=== PATIENT | female | born 1935 | race African-American/Black ===

== ENCOUNTER 2021-03-10 00:36 | Inpatient (IN) | payer BC ==
[~2021-03-10] VITALS: Ht 167.6 cm; Wt 48.1 kg
--- NOTE | 2021-03-10 00:42 | NUR ---
pt bib RA 88 with c/o mechanical fall. C/o left hip pain. A/O x4, able to move all extremities but with discomfort on left extremity. No SOB or labored breathing, afebrile. Son at bedside.No visible edema on extremities. No c/o GI/.
--- NOTE | 2021-03-10 00:46 | NUR ---
Dr. Yip at bedside, MSE in progress.
[2021-03-10] MEDS ORDERED: MORPHINE SULFATE 2 MG/1 ML DISP.SYRIN IM ONE (01:00)
--- NOTE | 2021-03-10 01:21 | NUR ---
Pt taken down for CT.
[2021-03-10 01:35] LABS: BASOPHILS % (AUTO) 0.3 % (0.0-2.0); EOSINOPHILS % (AUTO) 0.1 % (0.0-7.0); HEMATOCRIT 28.8 % (31.2-41.9); LYMPHOCYTES # (AUTO) 0.5 K/uL (20.0-40.0); LYMPHOCYTES % (AUTO) 4.7 % (20.5-51.5); MEAN CORPUSCULAR HEMOGLOBIN 29.5 uug (24.7-32.8); MEAN CORPUSCULAR HGB CONC 35 g/dL (32.3-35.6); MEAN CORPUSCULAR VOLUME 84.6 fL (75.5-95.3); MONOCYTES # (AUTO) 0.5 K/uL (2.0-10.0); MONOCYTES % (AUTO) 4.9 % (0.0-11.0); NEUTROPHILS # (AUTO) 9.2 K/uL (1.8-8.9); PLATELET COUNT (AUTO) 130 K/uL (179-408); RED BLOOD CELL COUNT(AUTO) 3.41 MIL/uL (3.63-4.92); WHITE BLOOD COUNT (AUTO) 10.3 K/uL (3.8-11.8)
[2021-03-10 01:37] LABS: CREATININE 0.8 mg/dL (0.6-1.3); POTASSIUM 3.4 mmol/L (3.5-5.1)
[2021-03-10 01:42] LABS: BILIRUBIN,TOTAL 0.2 mg/dL (0.2-1.0); TOTAL PROTEIN, SERUM 6.7 g/dL (6.4-8.2)
--- NOTE | 2021-03-10 01:57 | NUR ---
Pt brought back from CT in stable condition.
[2021-03-10] MEDS ORDERED: HYDR50TA4 PO (03:21)
[2021-03-10] MEDS ORDERED: OXYB-58 PO (03:21)
[2021-03-10] MEDS ORDERED: TERB250T52 PO (03:21)
[2021-03-10] MEDS ORDERED: SIMV10TA98 PO (03:21)
[2021-03-10] MEDS ORDERED: ENOXAPARIN SODIUM 40 MG/0.4 ML DISP.SYRIN SQ SCH ×2 (03:30→09:00)
[2021-03-10] MEDS ORDERED: ONDANSETRON 4 MG/2 ML VIAL IV PRN (03:30)
[2021-03-10] MEDS ORDERED: LORAZEPAM 2 MG/1 ML VIAL IV PRN (03:30)
[2021-03-10] MEDS ORDERED: Z GUARD REMEDY PASTE 57 GM TUBE TOP PRN (03:30)
[2021-03-10] MEDS ORDERED: MAGNESIUM HYDROXIDE 30 ML LIQUID UDC PO PRN (03:30)
[2021-03-10] MEDS ORDERED: MORPHINE SULFATE 2 MG/1 ML DISP.SYRIN IV PRN (03:30)
--- NOTE | 2021-03-10 03:38 | NUR ---
Spoke with Radha Snell, housekeeping cleaner from [facility]. Per Radha they have no available beds at this time and to try again at 0730 with day shift[address] [facility]-
[2021-03-10 04:20] LABS: *BILIRUBIN,URIN NEGATIVE (NEGATIVE); *BLOOD, URINE 2+ (NEGATIVE); *CLARITY,URINE SLIGHTLY CLOUDY (CLEAR); *COLOR,URINE YELLOW (YELLOW); *KETONES,URINE NEGATIVE (NEGATIVE); *UROBILINOGEN,URINE 0.2 E.U./dl (NORMAL); LEUKOCYTE ESTERASE ,URINE TRACE (NEGATIVE); NITRITE, URINE NEGATIVE (NEGATIVE); PH,URINE 6.5 (5.0-8.0); UGLUCOSE NEGATIVE (NEGATIVE)
--- NOTE | 2021-03-10 04:20 | NUR ---
Gave report to Med Surg nurse Kym.
[2021-03-10 04:34] LABS: BACTERIA,URINE MODERATE /HPF (NONE SEEN); MUCUS,URINE FEW /LPF (0-FEW); RBC,URINE 80-100 /HPF (0-3); SQUAMOUS EPITHELIAL CELL,UR MODERATE /HPF (NONE SEEN); URINE AMORPHOUS URATE MODERATE /HPF; WBC,URINE 50-80 /HPF (0-3)
--- NOTE | 2021-03-10 04:41 | NUR ---
ER MD Dr. Yip with verbal order to hold Lovenox for possible procedure.
--- NOTE | 2021-03-10 05:21 | NUR ---
Patient is resting comfortably in bed with eyes closed. Bed in lowest position.
[2021-03-10] MEDS: IV NS 1000 ML 1,000 ML IV PRN ×2 (06:00→11:20)
--- NOTE | 2021-03-10 07:01 | NUR ---
Gave report to bertrand Michelle RN.
--- NOTE | 2021-03-10 07:31 | NUR ---
[facility] center was called to check bed availability. Waiting for call back with bed information from [facility] .
--- NOTE | 2021-03-10 08:02 | NUR ---
Rashaad from [facility] called back with information - they cannot accept pt's transfer , because [facility] does not have available beds.
[2021-03-10] MEDS ORDERED: LORAZEPAM 2 MG/1 ML VIAL ONE (08:20)
[2021-03-10] MEDS ORDERED: PANTOPRAZOLE SODIUM 40 MG VIAL IV SCH (09:00)
--- NOTE | 2021-03-10 09:45 | NUR ---
REPORT WAS GIVEN TO YESSI M/S. PT WAS TRANSFERD TO M/S ROOM #308.
[2021-03-10 10:07] VITALS: BP 120/63
--- NOTE | 2021-03-10 11:00 | NUR ---
Admitted this 85 year old female from the Emergency Department. Pt in NAD, no SOB. VSS: BP 120/63, HR 72, O2 saturation 96% on RA, temperature 98.2, RR 20. Pt's son at bedside. Pt able to participate in admission process. Pt oriented to unit, floor, and assigned room number. Pt A&Ox4, able to verbalize needs. Pt educated computer consultant light usage, verbalized understanding. Safety measures and fall precautions in place. Call light and belongings within reach.
[2021-03-10] MEDS: POTASSIUM CHLORIDE 50 ML IV SCH ×2 (11:21→13:00)
--- NOTE | 2021-03-10 11:25 | NUR ---
No IV pole or pump available until current time. IV medication and fluid delayed, pharmacy aware.
[2021-03-10] MEDS ORDERED: POTASSIUM CHLORIDE 10 MEQ TAB.PRT.SR PO ONE (13:00)
[2021-03-10] MEDS: ENOXAPARIN SODIUM 40 MG/0.4 ML DISP.SYRIN SQ SCH (13:10)
--- NOTE | 2021-03-10 13:10 | NUR ---
Pt reported irritation in L arm d/t potassium IV. LITZY Lau aware, subsequent potassium dose changed to PO route. Pt requested PRN Tylenol for mild pain, pt took one pill and refused the other. Per pt "I take half doses". 2nd pill returned per policy.
[2021-03-10] MEDS ORDERED: POTASSIUM CHLORIDE 10 MEQ, LIDOCAINE-MPF 1% 1 ML in IV DEXTROSE 5% 100 ML IV SCH (13:15)
[2021-03-10] MEDS: ACETAMINOPHEN 325 MG TABLET PO PRN ×2 (13:16→20:19)
[2021-03-10 15:29] VITALS: BP 130/65
--- NOTE | 2021-03-10 18:54 | NUR ---
Pt in no acute distress, awake and alert. Perez Kwong at bedside, stated he would like to speak with Dr. Lau, Dr. Lau aware. Nursing care discussed with pt and family. Pt kept clean and dry, repositioned gently. Will endorse to sdv pilot/navigator/dds operator nurse for continuity of care.
[2021-03-10 20:06] VITALS: BP 106/50
[2021-03-11] MEDS: MORPHINE SULFATE 2 MG/1 ML DISP.SYRIN IV PRN ×3 (00:20→20:16)
[2021-03-11] MEDS: IV NS 1000 ML 1,000 ML IV PRN (01:45)
[2021-03-11 04:06] VITALS: BP 114/54
--- NOTE | 2021-03-11 06:23 | NUR ---
TEXTED DR. STUBBS FOR MRI APPROVAL.
[2021-03-11] MEDS: PANTOPRAZOLE SODIUM 40 MG TABLET.DR PO SCH (06:29)
[2021-03-11 06:35] LABS: BASOPHILS % (AUTO) 0.4 % (0.0-2.0); EOSINOPHILS % (AUTO) 1.2 % (0.0-7.0); HEMATOCRIT 24.6 % (31.2-41.9); HEMOGLOBIN 8.4 g/dL (10.9-14.3); LYMPHOCYTES # (AUTO) 0.8 K/uL (20.0-40.0); LYMPHOCYTES % (AUTO) 20.1 % (20.5-51.5); MEAN CORPUSCULAR HGB CONC 34 g/dL (32.3-35.6); MEAN CORPUSCULAR VOLUME 85.1 fL (75.5-95.3); MONOCYTES # (AUTO) 0.4 K/uL (2.0-10.0); NEUTROPHILS # (AUTO) 2.8 K/uL (1.8-8.9); NEUTROPHILS % (AUTO) 69.3 % (38.5-71.5); PLATELET COUNT (AUTO) 92 K/uL (179-408); RED BLOOD CELL COUNT(AUTO) 2.89 MIL/uL (3.63-4.92)
--- NOTE | 2021-03-11 06:39 | NUR ---
Pt slept intermittently throughout the night. C/o mild pain in left hip, declines pain medication at this time. Morphine given once on shift, tolerated well. Consent needed for MRI, patient wants to speak with her son before making a decision, will endorse to day shift. Otherwise, no distress noted. Safety and comfort provided. No other issues or concerns at this time, will endorse to day shift.
[2021-03-11 07:02] LABS: CREATININE 0.8 mg/dL (0.6-1.3); MAGNESIUM 1.8 mg/dL (1.8-2.4); PHOSPHOROUS 2.6 mg/dL (2.5-4.9); POTASSIUM 3.6 mmol/L (3.5-5.1)
[2021-03-11 07:17] LABS: EOSINOPHILS % (MANUAL) 1 % (0-8); LYMPHOCYTES % (MANUAL) 16 % (20-40); MONOCYTES % (MANUAL) 10 % (2-10); NEUTROPHILS % (MANUAL) 73 % (42-75)
[2021-03-11 08:22] VITALS: BP 114/50
[2021-03-11] MEDS: ENOXAPARIN SODIUM 40 MG/0.4 ML DISP.SYRIN SQ SCH (08:32)
--- NOTE | 2021-03-11 08:33 | NUR ---
Informed Oh Lau DNP that lovenox is due but platelet count is 92, per TOP STITCHER hold dose for now, and continue on the use of DVT pump.
[2021-03-11 11:45] VITALS: BP 129/63
[2021-03-11 14:28] VITALS: BP 137/63
--- NOTE | 2021-03-11 17:00 | NUR ---
Patient remains alert, oriented x3, not in any form of distress, on room air. Patient complained of left hip pain given PRN pain medication as ordered with noted relief. Needs attended to promptly. Call light and frequently used items placed within patient's reach. Son at bedside.
--- NOTE | 2021-03-11 19:00 | NUR ---
PATIENT ALERT X3, BUT FORGETFUL, PATIENT COMPLAIN OF L HIP/PELVIC PAIN, WILL MEDICATED ORDERED, PATIENT URINATING, INCONTINENCE OF BLADDER. PATIENT WAS KEPT CLEAN AND DRY, CALL LIGHT WITHIN REACH, CONT TO MONITOR.
[2021-03-11 20:00] VITALS: BP 142/66
[2021-03-11] MEDS: SIMVASTATIN 10 MG TABLET PO SCH (20:12)
[2021-03-11] MEDS: ACETAMINOPHEN 325 MG TABLET PO PRN (21:09)
[2021-03-12 04:00] VITALS: BP 129/60
[2021-03-12] MEDS: PANTOPRAZOLE SODIUM 40 MG TABLET.DR PO SCH (06:03)
[2021-03-12 06:26] LABS: BASOPHILS % (AUTO) 0.5 % (0.0-2.0); EOSINOPHILS # (AUTO) 0.1 K/uL (0.0-0.7); EOSINOPHILS % (AUTO) 1.6 % (0.0-7.0); HEMATOCRIT 25.6 % (31.2-41.9); HEMOGLOBIN 8.6 g/dL (10.9-14.3); LYMPHOCYTES # (AUTO) 0.9 K/uL (20.0-40.0); LYMPHOCYTES % (AUTO) 20.7 % (20.5-51.5); MEAN CORPUSCULAR HEMOGLOBIN 28.6 uug (24.7-32.8); MEAN CORPUSCULAR HGB CONC 34 g/dL (32.3-35.6); MEAN CORPUSCULAR VOLUME 84.7 fL (75.5-95.3); MONOCYTES # (AUTO) 0.4 K/uL (2.0-10.0); MONOCYTES % (AUTO) 9.9 % (0.0-11.0); NEUTROPHILS # (AUTO) 2.8 K/uL (1.8-8.9); NEUTROPHILS % (AUTO) 67.3 % (38.5-71.5); PLATELET COUNT (AUTO) 93 K/uL (179-408); RED BLOOD CELL COUNT(AUTO) 3.02 MIL/uL (3.63-4.92); WHITE BLOOD COUNT (AUTO) 4.2 K/uL (3.8-11.8)
[2021-03-12] MEDS: MORPHINE SULFATE 2 MG/1 ML DISP.SYRIN IV PRN ×2 (06:39→17:04)
[2021-03-12 06:55] LABS: CREATININE 0.7 mg/dL (0.6-1.3); PHOSPHOROUS 3.1 mg/dL (2.5-4.9); POTASSIUM 3.7 mmol/L (3.5-5.1)
[2021-03-12] MEDS: IV NS 1000 ML 1,000 ML IV PRN (06:56)
--- NOTE | 2021-03-12 06:59 | NUR ---
PATIENT ALERT NO SOB NO CHEST PAIN, PATIENT INCONTINENT OF BLADDER, KEPT CLEAN AND DRY, CONT ON PAIN MANAGEMENT DUE L HIP/PELVIC FX, NO S/S OF DISTRESS.
--- NOTE | 2021-03-12 07:30 | NUR ---
Received patient in bed awake, alert and oriented times 4. No sign of distress noted. No SOB reported. Patient is being prepped for a MRI. Safety precautions are in place. Will continue to monitor.
[2021-03-12] MEDS: ENOXAPARIN SODIUM 40 MG/0.4 ML DISP.SYRIN SQ SCH (09:00)
--- NOTE | 2021-03-12 09:02 | NUR ---
Lovenox help per patient platelet level. Platelets is 93. Will continue to monitor.
[2021-03-12 11:49] VITALS: BP 129/57
[2021-03-12 13:11] LABS: LYMPHOCYTES % (MANUAL) 25 % (20-40); MONOCYTES % (MANUAL) 8 % (2-10); NEUTROPHILS % (MANUAL) 67 % (42-75)
[2021-03-12 16:00] VITALS: BP 136/76
[2021-03-12] MEDS: ENSURE ENLIVE (VAN) 240 ML LIQUID PO SCH (17:44)
--- NOTE | 2021-03-12 18:53 | NUR ---
Patient is resting in bed. No sign of distress noted. Gave medications as ordered. Patient has a MRI, still awaiting results. Safety measures are in place. Will endorse to incoming nurse.
[2021-03-12] MEDS: SIMVASTATIN 10 MG TABLET PO SCH (20:47)
[2021-03-12 21:18] VITALS: BP 113/59
[2021-03-13] MEDS: MORPHINE SULFATE 2 MG/1 ML DISP.SYRIN IV PRN (03:47)
[2021-03-13 05:28] VITALS: BP 133/72
[2021-03-13] MEDS: PANTOPRAZOLE SODIUM 40 MG TABLET.DR PO SCH (06:04)
[2021-03-13] MEDS: ENSURE ENLIVE (VAN) 240 ML LIQUID PO SCH ×2 (08:04→16:03)
[2021-03-13] MEDS: ENOXAPARIN SODIUM 40 MG/0.4 ML DISP.SYRIN SQ SCH (08:04)
[2021-03-13] MEDS ORDERED: DOCUSATE SODIUM 100 MG CAPSULE PO PRN (09:30)
[2021-03-13 12:00] VITALS: BP 104/59
[2021-03-13] MEDS: HYDROCODONE/APAP 5-325MG TABLET PO PRN ×2 (14:06→20:33)
[2021-03-13 14:49] LABS: *BILIRUBIN,URIN NEGATIVE (NEGATIVE); *BLOOD, URINE TRACE LYSED (NEGATIVE); *CLARITY,URINE SLIGHTLY CLOUDY (CLEAR); *COLOR,URINE LIGHT YELLOW (YELLOW); *KETONES,URINE NEGATIVE (NEGATIVE); *UROBILINOGEN,URINE 0.2 E.U./dl (NORMAL); LEUKOCYTE ESTERASE ,URINE 2+ (NEGATIVE); NITRITE, URINE POSITIVE (NEGATIVE); UGLUCOSE NEGATIVE (NEGATIVE)
[2021-03-13] MEDS ORDERED: CEFTRIAXONE 1 G VIAL IV SCH (15:45)
[2021-03-13 16:00] VITALS: BP 136/58
[2021-03-13 16:03] LABS: BACTERIA,URINE MANY /HPF (NONE SEEN); SQUAMOUS EPITHELIAL CELL,UR MODERATE /HPF (NONE SEEN)
[2021-03-13] MEDS: CEFTRIAXONE 1 G in IV DEXTROSE 5% 50 ML IV SCH (16:18)
--- NOTE | 2021-03-13 19:30 | NUR ---
Received pt in bed, A&Ox4, verbally responsive, able to make needs known. No s/s of respiratory distress. Verbalized pain is bearable. IV access intact and patent. Safety measures initiated, call light within reach, will continue to monitor.
[2021-03-13 20:03] VITALS: BP 113/63
[2021-03-13] MEDS: SIMVASTATIN 10 MG TABLET PO SCH (20:33)
[2021-03-14 04:03] VITALS: BP 114/63
[2021-03-14] MEDS: PANTOPRAZOLE SODIUM 40 MG TABLET.DR PO SCH (06:09)
[2021-03-14] MEDS: ACETAMINOPHEN 325 MG TABLET PO PRN (06:12)
--- NOTE | 2021-03-14 06:22 | NUR ---
Pt slept intermittently through the night, no signs of acute distress. Pain medication administered as ordered, tolerated medications well. For PT eval today. Safety measures in place, call light within reach, all needs attended and met.
[2021-03-14] MEDS ORDERED: HYDROCODONE/APAP 5-325MG TABLET PO PRN (07:45)
[2021-03-14] MEDS: ENSURE ENLIVE (VAN) 240 ML LIQUID PO SCH ×2 (08:48→17:03)
[2021-03-14] MEDS: ENOXAPARIN SODIUM 40 MG/0.4 ML DISP.SYRIN SQ SCH (08:49)
[2021-03-14] MEDS: MORPHINE SULFATE 2 MG/1 ML DISP.SYRIN IV PRN ×2 (09:07→22:57)
[2021-03-14 12:00] VITALS: BP 115/74
[2021-03-14 16:00] VITALS: BP 118/70
[2021-03-14] MEDS: CEFTRIAXONE 1 G in IV DEXTROSE 5% 50 ML IV SCH (17:03)
[2021-03-14 20:06] VITALS: BP 119/70
[2021-03-14] MEDS: SIMVASTATIN 10 MG TABLET PO SCH (20:59)
[2021-03-15 04:06] VITALS: BP 119/72
[2021-03-15] MEDS: PANTOPRAZOLE SODIUM 40 MG TABLET.DR PO SCH (06:12)
[2021-03-15] MEDS: MORPHINE SULFATE 2 MG/1 ML DISP.SYRIN IV PRN (06:39)
[2021-03-15] MEDS: ENOXAPARIN SODIUM 40 MG/0.4 ML DISP.SYRIN SQ SCH (10:08)
[2021-03-15] MEDS: ENSURE ENLIVE (VAN) 240 ML LIQUID PO SCH ×2 (10:08→16:28)
[2021-03-15] MEDS ORDERED: Lactose-Free Food PO (15:04)
[2021-03-15] MEDS ORDERED: PANT40TA2 PO (15:04)
[2021-03-15] MEDS ORDERED: ACET325T53 PO (15:04)
[2021-03-15] MEDS ORDERED: MAGN400O6 PO (15:04)
[2021-03-15] MEDS ORDERED: HYDR-3972 PO (15:04)
[2021-03-15] MEDS ORDERED: CEPH500C2 PO (15:04)
[2021-03-15] MEDS ORDERED: ENOX40DI SQ (15:04)
[2021-03-15] MEDS ORDERED: DOCU100C36 PO (15:04)
[2021-03-15 15:24] VITALS: BP 90/50
[2021-03-15] MEDS: CEFTRIAXONE 1 G in IV DEXTROSE 5% 50 ML IV SCH (16:27)
--- NOTE | 2021-03-15 18:21 | NUR ---
D/C FORM MS AND ADMIT TO ARU. EXPLAIN TO HER SHE IS IN AGREEMENT.
== END 2021-03-15 18:26 | DRG 536 ==
LOC: ER 00:37 → MEDSURG3 04:22
PROVIDERS: ADMIT Hospitalist; ATTEND Nurse Practitioner Acute Care
DX: S32.592A Other specified fracture of left pubis, initial encounter for closed fracture (principal); S32.129A Unspecified Zone II fracture of sacrum, initial encounter for closed fracture; R64 Cachexia; Z68.1 Body mass index [BMI] 19.9 or less, adult; E44.0 Moderate protein-calorie malnutrition; S32.512A Fracture of superior rim of left pubis, initial encounter for closed fracture; W01.0XXA Fall on same level from slipping, tripping and stumbling without subsequent striking against object, initial encounter; Y92.039 Unspecified place in apartment as the place of occurrence of the external cause; E87.6 Hypokalemia; D63.8 Anemia in other chronic diseases classified elsewhere; D69.6 Thrombocytopenia, unspecified; I10 Essential (primary) hypertension; E78.5 Hyperlipidemia, unspecified; M19.90 Unspecified osteoarthritis, unspecified site; S00.03XA Contusion of scalp, initial encounter; Z20.822 Contact with and (suspected) exposure to COVID-19; M62.50 Muscle wasting and atrophy, not elsewhere classified, unspecified site; Y93.9 Activity, unspecified; M85.80 Other specified disorders of bone density and structure, unspecified site; M51.36 Other intervertebral disc degeneration, lumbar region; S30.1XXA Contusion of abdominal wall, initial encounter; R51.9 Headache, unspecified; S60.212A Contusion of left wrist, initial encounter; M54.5 Low back pain; M50.30 Other cervical disc degeneration, unspecified cervical region
CPT/HCPCS: 36415; 70030-TC; 70450; 72125; 72148; 72192; 73110; 83735; 84100; 85025; 85610; 85730; 87086; 93005; A4663; C9113; G0378; J0696; J1650; J2060; J2270; J3480; J3490; J7030; J7040; J7050; J7060

== ENCOUNTER 2021-03-15 15:11 | Inpatient (IN) | payer BC ==
[~2021-03-15] VITALS: Ht 167.6 cm; Wt 48.1 kg
[~2021-03-15 15:11] MED LIST: ACET325T53 PO; CEPH500C2 PO; DOCU100C36 PO; ENOX40DI SQ; HYDR-3972 PO; HYDR50TA4 PO; Lactose-Free Food PO; MAGN400O6 PO; OXYB-58 PO; PANT40TA2 PO; SIMV10TA98 PO; TERB250T52 PO
[2021-03-15] MEDS ORDERED: DOCUSATE SODIUM 100 MG CAPSULE PO PRN (19:00)
[2021-03-15] MEDS ORDERED: MAGNESIUM HYDROXIDE 30 ML LIQUID UDC PO PRN (19:00)
--- NOTE | 2021-03-15 19:00 | NUR ---
Received patient in bed, awake, alert and oriented x 4, with HOB elevated. Very conversant, and needy as well. Able to move all extremities, turned and repositioned self in bed. Presented complaint of delayed pain medication request and very impatient on waiting but then refused when offered. Routine admission care done. Plan of care initiated.
[2021-03-15 20:31] VITALS: BP 114/70
[2021-03-15] MEDS: SIMVASTATIN 10 MG TABLET PO SCH (20:47)
[2021-03-15] MEDS: HYDROCODONE/APAP 5-325MG TABLET PO PRN (20:49)
[2021-03-16] MEDS: HYDROCODONE/APAP 5-325MG TABLET PO PRN ×5 (02:43→23:31)
--- NOTE | 2021-03-16 05:32 | NUR ---
Shift End Report: VS astable. Slept inbetween care. Medicated twice for pelvic pain with help. No further complaint presented after. All needs attended and met. No significant event reported all night. Continue care as planned.
[2021-03-16] MEDS: PANTOPRAZOLE SODIUM 40 MG TABLET.DR PO SCH (06:19)
[2021-03-16 06:25] VITALS: BP 118/67
[2021-03-16 08:00] VITALS: BP 126/76
--- NOTE | 2021-03-16 08:00 | NUR ---
PATIENT RECEIVED IN BED WITH EYES OPEN, ALERT AND ORIENTED. PATIENT IS ON RA WITH NO SOB OR DIFFICULTIES BREATHING. LEFT FOREARM 22G IV IS PATENT WITH NO REDNESS OR SWELLING. PATIENT IS COMPLAINING OF PAIN 8 OUT 10 AND NORCO ADMINISTERED ORDERED. PATIENT STATES SHE HAS NO OTHER DISCOMFORTS AT THIS TIME AND STATES SHE IS EXCITED FOR PHYSICAL THERAPY TODAY. PERSONAL BELONGINGS AND CALL LIGHT WITHIN EASY REACH. WILL CONTINUE TO MONITOR.
[2021-03-16] MEDS: CEphaleXIN 500 MG CAPSULE PO SCH ×2 (08:15→17:12)
[2021-03-16] MEDS: OXYBUTYNIN XL 5 MG TABSR PO SCH (08:15)
[2021-03-16] MEDS: HYDROCHLOROTHIAZIDE 25 MG TABLET PO SCH (08:16)
[2021-03-16] MEDS: ENOXAPARIN SODIUM 40 MG/0.4 ML DISP.SYRIN SQ SCH (08:18)
[2021-03-16] MEDS: ENSURE WITH FIBER 237 ML LIQUID (CHOCOLATE) PO SCH ×2 (08:19→17:28)
[2021-03-16] MEDS ORDERED: Medication Not On Formulary EA ([Lactose-Free Food] 240 ML) PO SCH (09:00)
[2021-03-16] MEDS ORDERED: TERBINAFINE 250 MG TABLET PO SCH (09:00)
[2021-03-16 16:33] VITALS: BP 121/70
[2021-03-16] MEDS: SIMVASTATIN 10 MG TABLET PO SCH (17:12)
--- NOTE | 2021-03-16 18:36 | NUR ---
PATIENT IN BED ALERT AND ORIENTED. STATES SHE HAS NO PAIN OR OTHER DISCOMFORTS AT THIS TIME. ALL NEEDS MET. CALL LIGHT AND PERSONAL BELONGINGS WITHIN EASY REACH. WILL CONTINUE TO MONITOR.
--- NOTE | 2021-03-16 19:30 | NUR ---
RECEIVED PT AWAKE, ALERT AND ORIENTEDX4. PT IN NO ACUTE DISTRESS. SAFETY AND COMFORT PROVIDED. WILL CONTINUE TO MONITOR.
[2021-03-16 20:25] VITALS: BP 104/58
[2021-03-16] MEDS: ACETAMINOPHEN 325 MG TABLET PO PRN (21:41)
--- NOTE | 2021-03-16 23:56 | NUR ---
NORCO PRN GIVEN AT 2331H FOR 9/10 PIN SCALE ON HER PELVIC AREA. PT TOLERATED IT WELL. AT 2141H TYLENOL PRN 650 MG GIVEN FOR HEADACHE AND PELVIC PAIN. WILL CONTINUE TO MONITOR.
[2021-03-17 04:35] VITALS: BP 104/62
[2021-03-17] MEDS: HYDROCODONE/APAP 5-325MG TABLET PO PRN ×4 (05:01→21:26)
[2021-03-17] MEDS: PANTOPRAZOLE SODIUM 40 MG TABLET.DR PO SCH (06:13)
--- NOTE | 2021-03-17 06:13 | NUR ---
PT SLEPT INTERMITTENTLY. PT IN NO ACUTE DISTRESS. PRESCRIBED MEDICATION GIVEN AND PT TOLERATED IT WELL.NORCO PRN GIVEN AT 0501H. SAFETY AND COMFORT PROVIDED. WILL ENDORSE TO INCOMING NURSE FOR CONTINUITY OF CARE.
--- NOTE | 2021-03-17 07:33 | NUR ---
Awake and watching tv, responsive to stimuli. In no acute distress. Denies pain at this time. Safety maintained. Kept comfortable. Continue to monitor.
[2021-03-17 08:00] VITALS: BP 105/62
[2021-03-17] MEDS: ACETAMINOPHEN 325 MG TABLET PO PRN (08:05)
[2021-03-17] MEDS: OXYBUTYNIN XL 5 MG TABSR PO SCH (08:28)
[2021-03-17] MEDS: CEphaleXIN 500 MG CAPSULE PO SCH ×2 (08:29→16:23)
[2021-03-17] MEDS: ENSURE WITH FIBER 237 ML LIQUID (CHOCOLATE) PO SCH ×2 (08:29→17:20)
[2021-03-17] MEDS: ENOXAPARIN SODIUM 40 MG/0.4 ML DISP.SYRIN SQ SCH (08:33)
[2021-03-17] MEDS: HYDROCHLOROTHIAZIDE 25 MG TABLET PO SCH (08:35)
[2021-03-17] MEDS: PHENAZOPYRIDINE HCL 100 MG TABLET PO SCH ×2 (12:47→16:23)
[2021-03-17 16:37] VITALS: BP 121/58
[2021-03-17] MEDS: SIMVASTATIN 10 MG TABLET PO SCH (17:19)
--- NOTE | 2021-03-17 19:10 | NUR ---
Alert and oriented able to make needs known. Denies sob. In no acute distress. Due meds given and tolerated. Safety and comfort maintained. Endorsed for continuity of care.
[2021-03-17 20:09] VITALS: BP 109/68
--- NOTE | 2021-03-17 20:24 | NUR ---
RECEIVED PT AWAKE, ALERT AND ORIENTEDX4. PT IN NO ACUTE DISTRESS. DENIES PAIN AT THIS TIME. SAFETY AND COMFORT PROVIDED. WILL CONTINUE TO MONITOR.
[2021-03-18] MEDS: ACETAMINOPHEN 325 MG TABLET PO PRN (01:21)
[2021-03-18] MEDS: HYDROCODONE/APAP 5-325MG TABLET PO PRN ×5 (02:47→19:35)
[2021-03-18 04:09] VITALS: BP 102/57
--- NOTE | 2021-03-18 06:08 | NUR ---
PT SLEPT INTERMITTENTLY. PRESCRIBED MEDICATION GIVEN AND PT TOLERATED IT WELL. PT GIVEN NORCO 5-325 MG AT 2126H AND 0247H FOR PAIN. PT TOLERATED IT WELL. PT IN NO ACUTE DISTRESS. VITAL SIGNS WITHIN NORMAL LIMIT. SAFETY AND COMFORT PROVIDED. WILL ENDORSE TO INCOMING NURSE FOR CONTINUITY OF CARE.
[2021-03-18] MEDS: PANTOPRAZOLE SODIUM 40 MG TABLET.DR PO SCH (06:11)
--- NOTE | 2021-03-18 06:50 | NUR ---
At 0650h norco prn given to pt for pain. Pt tolerated it well. Will endorse to incoming nurse.
[2021-03-18 08:00] VITALS: BP 134/66
[2021-03-18] MEDS: OXYBUTYNIN XL 5 MG TABSR PO SCH (08:29)
[2021-03-18] MEDS: CEphaleXIN 500 MG CAPSULE PO SCH ×2 (08:29→17:47)
[2021-03-18] MEDS: ENSURE WITH FIBER 237 ML LIQUID (CHOCOLATE) PO SCH ×2 (08:30→17:47)
[2021-03-18] MEDS: PHENAZOPYRIDINE HCL 100 MG TABLET PO SCH ×3 (08:30→17:47)
[2021-03-18] MEDS: HYDROCHLOROTHIAZIDE 25 MG TABLET PO SCH ×2 (08:38→09:00)
[2021-03-18] MEDS: ENOXAPARIN SODIUM 40 MG/0.4 ML DISP.SYRIN SQ SCH ×2 (09:00→10:00)
--- NOTE | 2021-03-18 11:00 | NUR ---
Followed up with Carol Ann Vidales BEEF FARMER regarding due lovenox with a platelet of 93 done 03/12/21 and per BEEF FARMER, discontinue lovenox.
[2021-03-18 15:41] LABS: MEAN CORPUSCULAR HEMOGLOBIN 29.1 uug (24.7-32.8); MEAN CORPUSCULAR VOLUME 84.2 fL (75.5-95.3); PLATELET COUNT (AUTO) 271 K/uL (179-408)
[2021-03-18 15:48] VITALS: BP 131/59
[2021-03-18 15:51] LABS: ALANINE AMINOTRANSFERASE 81 U/L (14-59); ALKALINE PHOSPHATASE 98 U/L (50-136); ASPARTATE AMINOTRANSFERASE 57 U/L (15-37); BILIRUBIN,TOTAL 0.4 mg/dL (0.2-1.0); CARBON DIOXIDE 31 mmol/L (21-32); CHLORIDE 99 mmol/L (98-107); CREATININE 0.8 mg/dL (0.6-1.3); GLUCOSE 99 mg/dL (74-106); POTASSIUM 3.8 mmol/L (3.5-5.1); TOTAL PROTEIN, SERUM 7.1 g/dL (6.4-8.2); UREA NITROGEN, BLOOD 26 mg/dL (7-18)
[2021-03-18] MEDS: SIMVASTATIN 10 MG TABLET PO SCH (17:47)
--- NOTE | 2021-03-18 18:00 | NUR ---
Dr. Seay came to see patient, update given to MD with order to change [place] to 10/325 PO Q6 hrs PRN and start on Oxycontin 10mg PO Q 12 hrs.
--- NOTE | 2021-03-18 19:20 | NUR ---
Received pt in bed, A&Ox4, able to make needs known. Very pleasant. No signs of acute distress. IV access intact and patent. Safety measures initiated, call light and belongings within reach. Will continue to monitor.
[2021-03-18 20:00] VITALS: BP 129/77
[2021-03-18] MEDS ORDERED: HYDROCODONE/APAP 10-325 MG TABLET PO PRN (20:00)
[2021-03-18] MEDS: OXYCODONE HCL 10 MG TAB.SR.12H PO SCH (22:21)
[2021-03-19 04:00] VITALS: BP 106/61
[2021-03-19] MEDS: PANTOPRAZOLE SODIUM 40 MG TABLET.DR PO SCH (06:05)
--- NOTE | 2021-03-19 06:45 | NUR ---
Slept through the night, no s/s of acute distress, denies any pain or discomfort. Pt tolerated medications well. Safety measures maintained at all times. all needs attended to and met.
[2021-03-19 08:00] VITALS: BP 115/72
[2021-03-19] MEDS: PHENAZOPYRIDINE HCL 100 MG TABLET PO SCH (08:52)
[2021-03-19] MEDS: HYDROCHLOROTHIAZIDE 25 MG TABLET PO SCH (08:56)
[2021-03-19] MEDS: CEphaleXIN 500 MG CAPSULE PO SCH ×2 (08:56→17:11)
[2021-03-19] MEDS: OXYBUTYNIN XL 5 MG TABSR PO SCH (08:56)
[2021-03-19] MEDS: OXYCODONE HCL 10 MG TAB.SR.12H PO SCH ×2 (08:56→20:23)
[2021-03-19] MEDS: ENSURE WITH FIBER 237 ML LIQUID (CHOCOLATE) PO SCH ×2 (08:57→17:13)
[2021-03-19 15:57] VITALS: BP 144/65
[2021-03-19] MEDS: SIMVASTATIN 10 MG TABLET PO SCH (17:11)
--- NOTE | 2021-03-19 20:00 | NUR ---
RECEIVED PATIENT IN BED AWAKE ALERT AND ORIENTED NEEDED TO URINATE ASSISTED INTO THE BATHROOM AMBULATORY WITH THE FRONT WHEEL WALKER WITH MIN ASSIST VOIDED AND ASSISTED BACK TO BED MADE COMFORTABLE STATED PAIN IS HOLDING WILL WAIT FOR HER ROUTINE PAIN MEDICATIONS ORDERED.CALL LIGHTS AND HER PERSONAL BELONGINGS ARE WITHIN EASY REACH WILL CONTINUE TO OBSERVE AND PROVIDE COMFORT.
[2021-03-19 20:23] VITALS: BP 118/62
--- NOTE | 2021-03-20 02:02 | NUR ---
received patient awake , arousable to name , on room air , no signs of distress
[2021-03-20 04:50] VITALS: BP 105/57
--- NOTE | 2021-03-20 06:00 | NUR ---
sleeping soundly arousable by name and touch , on room air , denies distress
[2021-03-20] MEDS: OXYCODONE HCL 10 MG TAB.SR.12H PO SCH ×2 (08:12→20:29)
[2021-03-20] MEDS: CEphaleXIN 500 MG CAPSULE PO SCH ×2 (08:12→16:42)
[2021-03-20] MEDS: PANTOPRAZOLE SODIUM 40 MG TABLET.DR PO SCH (08:12)
[2021-03-20] MEDS: OXYBUTYNIN XL 5 MG TABSR PO SCH (08:13)
[2021-03-20] MEDS: HYDROCHLOROTHIAZIDE 25 MG TABLET PO SCH (08:14)
[2021-03-20] MEDS: ENSURE WITH FIBER 237 ML LIQUID (CHOCOLATE) PO SCH ×2 (08:16→16:42)
[2021-03-20 08:17] VITALS: BP 115/65
--- NOTE | 2021-03-20 09:00 | NUR ---
PATIENT IS AWAKE ALERT AND ORIENTED REMAIN ON PAIN MANAGEMENT ORDERED AND HELPFUL UP AND ABLE TO AMBULATE WITH THE FRONT WHEEL WALKER WITH SLOW STEADY GAIT CALL LIGHTS AND PERSONAL BELONGINGS ARE WITHIN EASY REACH WILL CONTINUE TO OBSERVE AND PROVIDE COMFORT.
--- NOTE | 2021-03-20 14:09 | NUR ---
CONTINUE WITH PHYSICAL THERAPEUTIC EXERCISES SEEN IN THE HALLWAY WALKING WITH THE THERAPIST WITH CTA ASSIST WITH FRONT WHEEL WALKER ENDURANCE IS GOOD WILL CONTINUE TO OBSERVE.
[2021-03-20 16:00] VITALS: BP 102/58
[2021-03-20] MEDS: SIMVASTATIN 10 MG TABLET PO SCH (17:35)
--- NOTE | 2021-03-20 18:09 | NUR ---
AWAKE ALERT AND ORIENTED DUE MEDICATIONS GIVEN AND TOLERATED WELL DENIES PAIN OR DISCOMFORTS AT THIS TIME WILL CONTINUE TO OBSERVE AND PROVIDE COMFORT.
[2021-03-20 20:06] VITALS: BP 117/67
--- NOTE | 2021-03-20 20:41 | NUR ---
AWAKE,ALERTX4,RESTING COMFORTABLY, OXYCONTIN 10 MG GIVEN FOR PELVIC PAIN, MADE COMFORTABLE.VITAL SIGNS STABLE,IN NO ACUTE DISTRES.
[2021-03-21 04:06] VITALS: BP 115/66
[2021-03-21] MEDS: ACETAMINOPHEN 325 MG TABLET PO PRN (05:00)
[2021-03-21] MEDS: PANTOPRAZOLE SODIUM 40 MG TABLET.DR PO SCH (06:15)
--- NOTE | 2021-03-21 07:27 | NUR ---
slept at long interval,complained of headache, tylenol 650 given,heele elevated. placed in a pillow,no rednss noted.
[2021-03-21 08:00] VITALS: BP 111/58
[2021-03-21] MEDS: OXYBUTYNIN XL 5 MG TABSR PO SCH (08:21)
[2021-03-21] MEDS: OXYCODONE HCL 10 MG TAB.SR.12H PO SCH ×2 (08:22→20:25)
[2021-03-21] MEDS: HYDROCHLOROTHIAZIDE 25 MG TABLET PO SCH (08:25)
[2021-03-21] MEDS: ENSURE WITH FIBER 237 ML LIQUID (CHOCOLATE) PO SCH ×2 (08:26→17:02)
--- NOTE | 2021-03-21 09:10 | NUR ---
Patient is alert, oriented x 4, not in any form of distress, on room air. Patient refused hydrochlorothiazide. Patient complained of episode of dizziness while sitting on the side of the bed. BP checked while laying in bed 115/60. Dr. Torres in the unit MD made aware regarding dizziness and refusal of hydrochlorothiazide, per MD monitor for now with no new order. Assisted patient with her needs promptly. Call light and frequently used items placed within patient's reach. Maintained on fall precaution. Will continue to monitor.
[2021-03-21 11:57] VITALS: BP 114/67
[2021-03-21 16:00] VITALS: BP 108/56
[2021-03-21] MEDS: SIMVASTATIN 10 MG TABLET PO SCH (17:03)
--- NOTE | 2021-03-21 20:00 | NUR ---
awake alertx3 son at bedside, verbalized pain in the hips, in no acute distress.
[2021-03-21 20:15] VITALS: BP 112/60
[2021-03-22] MEDS: ACETAMINOPHEN 325 MG TABLET PO PRN (04:00)
[2021-03-22 04:15] VITALS: BP 114/65
[2021-03-22] MEDS: PANTOPRAZOLE SODIUM 40 MG TABLET.DR PO SCH (06:18)
--- NOTE | 2021-03-22 06:25 | NUR ---
complained of right lower ribs,pulse oximetry 99% tylenol 650 given..relieved after an hour.slept at short intervals.
[2021-03-22 07:42] VITALS: BP 116/56
[2021-03-22] MEDS: HYDROCHLOROTHIAZIDE 25 MG TABLET PO SCH (08:08)
[2021-03-22] MEDS: OXYBUTYNIN XL 5 MG TABSR PO SCH (08:08)
[2021-03-22] MEDS: OXYCODONE HCL 10 MG TAB.SR.12H PO SCH ×2 (08:08→20:33)
[2021-03-22] MEDS: ENSURE WITH FIBER 237 ML LIQUID (CHOCOLATE) PO SCH ×2 (08:09→16:06)
[2021-03-22 15:20] VITALS: BP 119/60
[2021-03-22] MEDS: SIMVASTATIN 10 MG TABLET PO SCH (17:07)
[2021-03-22 20:15] VITALS: BP 133/68
[2021-03-23] MEDS: ACETAMINOPHEN 325 MG TABLET PO PRN (03:27)
[2021-03-23 04:15] VITALS: BP 104/53
[2021-03-23] MEDS: PANTOPRAZOLE SODIUM 40 MG TABLET.DR PO SCH (06:13)
--- NOTE | 2021-03-23 06:41 | NUR ---
PATIENT AWAKE IN BED. SLEPT WELL. DENIES PAIN AT THIS TIME. BED ALARM ON. CALL LIGHT IN REACH. ALL NEEDS ATTENDED, WILL CONTINUE TO MONITOR AND ASSESS.
[2021-03-23 08:39] VITALS: BP 116/59
[2021-03-23] MEDS: OXYCODONE HCL 10 MG TAB.SR.12H PO SCH ×2 (08:44→20:06)
[2021-03-23] MEDS: OXYBUTYNIN XL 5 MG TABSR PO SCH (08:44)
[2021-03-23] MEDS: HYDROCHLOROTHIAZIDE 25 MG TABLET PO SCH (08:44)
[2021-03-23] MEDS: ENSURE WITH FIBER 237 ML LIQUID (CHOCOLATE) PO SCH ×2 (08:45→17:16)
--- NOTE | 2021-03-23 09:00 | NUR ---
Patient in bed alert and oriented x 4, pleasant and cooperative upon assessment. On room air saturating at 95% . No s/s of distress. All needs met promptly. Call light placed within reach. All due meds given as ordered.
[2021-03-23 15:07] VITALS: BP_SYST 107; BP_SYST 110; BP_DIAS 57; BP_DIAS 62
[2021-03-23] MEDS: SIMVASTATIN 10 MG TABLET PO SCH (17:49)
[2021-03-23 20:09] VITALS: BP 125/70
[2021-03-23] MEDS: PREGABALIN 25 MG CAPSULE PO SCH (20:51)
--- NOTE | 2021-03-23 21:08 | NUR ---
Received pt resting in bed. AAO x4. No acute distress noted. C/o 6/10 pain on the hip area, routine pain med given as ordered. Pt assisted to the bathroom using walker, standby assist, pt is safely back in bed. New order for Ric and Bryn from Dr. Seay. Safety measures maintained. Bed alarm on. Encouraged pt to use call light. Will continue to monitor.
[2021-03-23] MEDS: ASPIRIN/ACETAMINOPHEN/CAFFEINE TABLET PO PRN (22:49)
[2021-03-24 04:09] VITALS: BP 134/72
[2021-03-24] MEDS: PANTOPRAZOLE SODIUM 40 MG TABLET.DR PO SCH (06:06)
[2021-03-24 07:30] VITALS: BP 104/56
[2021-03-24] MEDS: OXYBUTYNIN XL 5 MG TABSR PO SCH (08:26)
[2021-03-24] MEDS: HYDROCHLOROTHIAZIDE 25 MG TABLET PO SCH (08:27)
[2021-03-24] MEDS: OXYCODONE HCL 10 MG TAB.SR.12H PO SCH ×2 (08:27→20:23)
[2021-03-24] MEDS: ENSURE WITH FIBER 237 ML LIQUID (CHOCOLATE) PO SCH ×2 (08:28→17:45)
[2021-03-24] MEDS: PREGABALIN 25 MG CAPSULE PO SCH ×2 (09:30→17:06)
--- NOTE | 2021-03-24 14:36 | NUR ---
Received patient in bed, alert and oriented x 4, pleasant and cooperative , denies of any discomfort. Patient on room air saturating at 95%. All due meds given per MD order. Call light placed within reach. All needs met promptly.
[2021-03-24 15:19] VITALS: BP 119/61
[2021-03-24] MEDS: SIMVASTATIN 10 MG TABLET PO SCH (17:06)
[2021-03-24 20:12] VITALS: BP 114/57
--- NOTE | 2021-03-24 20:34 | NUR ---
Received pt resting in bed. AAO x4. No acute distress noted. C/o 6/10 pain on the posterior left hip, routine pain med given as ordered. Safety measures maintained. Call light and personal items within reach. Will continue to monitor.
[2021-03-25] MEDS: ASPIRIN/ACETAMINOPHEN/CAFFEINE TABLET PO PRN ×2 (03:23→23:41)
[2021-03-25 04:12] VITALS: BP 132/77
[2021-03-25] MEDS: PANTOPRAZOLE SODIUM 40 MG TABLET.DR PO SCH (06:05)
[2021-03-25 08:12] VITALS: BP 132/82
[2021-03-25] MEDS: OXYBUTYNIN XL 5 MG TABSR PO SCH (08:40)
[2021-03-25] MEDS: HYDROCHLOROTHIAZIDE 25 MG TABLET PO SCH (08:40)
[2021-03-25] MEDS: OXYCODONE HCL 10 MG TAB.SR.12H PO SCH ×2 (08:41→20:40)
[2021-03-25] MEDS: PREGABALIN 25 MG CAPSULE PO SCH ×2 (08:47→20:37)
--- NOTE | 2021-03-25 08:49 | NUR ---
PATIENT REFUSED LYRICA STATED THAT SHE WILL PREFER TO TAKE IT ONLY AT NITE WILL NOTIFY DR MIRELES.
[2021-03-25] MEDS: ENSURE WITH FIBER 237 ML LIQUID (CHOCOLATE) PO SCH ×2 (09:24→17:20)
--- NOTE | 2021-03-25 09:47 | NUR ---
PATIENT IS UP AND AMBULATORY WITH THE FRONT WHEEL WALKER IN THE HAAWAY WITH THE PHYSICAL THERAPIST WITH [employer] AT THIS TIME.
--- NOTE | 2021-03-25 12:37 | NUR ---
DR MCKEON HERE TO SEE AND EXAMINE PATIENT AND WAS NOTIFIED THAT PATIENT PREFERS TO GET HER LYRICA ONCE A DAY IN THE NITE TIME WITH NEW ORDERS AND NOTED.
[2021-03-25 16:00] VITALS: BP 108/62
[2021-03-25] MEDS: SIMVASTATIN 10 MG TABLET PO SCH (17:20)
--- NOTE | 2021-03-25 18:00 | NUR ---
HAD AN EPISODE WHERE PATIENT STATED FELT WEAK WHILE SITTING ON THE EDGE OF THE BED ASSISTED INTO BED BLOOD PRESSURE CHECKED AND ITS 108/67 MADE COMFORTABLE STATED IT E=WAS JUST TEMPORARY
--- NOTE | 2021-03-25 18:34 | NUR ---
RESTING AT THIS TIME DENIES C/O
[2021-03-25 20:00] VITALS: BP 138/69
[2021-03-26 04:00] VITALS: BP 104/54
[2021-03-26] MEDS: PANTOPRAZOLE SODIUM 40 MG TABLET.DR PO SCH (06:09)
--- NOTE | 2021-03-26 06:35 | NUR ---
Shift End Report: Vs stable. Slept good. Medicated once with Excedrin with relief. No further complaint presented. All needs attended. No significant event reported. Continue current rehab plan of care.
--- NOTE | 2021-03-26 07:20 | NUR ---
RECIVED IN BED WITH EYES CLOSED EASILY AROUSABLE ON ROUNDS ON ROOM AIR WITH NO S/S OF SHORTNESS OF BREATH AT THIS TIME NO S/S OF PAIN NOTED CALL LIGHTS AND PERSONAL BELONGINGS ARE WITHIN EASY REACH MADE COMFORTABLE AND WILL CONTINUE TO OBSERVE.
[2021-03-26 07:33] VITALS: BP 135/78
[2021-03-26] MEDS: OXYBUTYNIN XL 5 MG TABSR PO SCH (08:20)
[2021-03-26] MEDS: OXYCODONE HCL 10 MG TAB.SR.12H PO SCH ×2 (08:21→20:57)
[2021-03-26] MEDS: HYDROCHLOROTHIAZIDE 25 MG TABLET PO SCH (08:21)
[2021-03-26] MEDS: ENSURE WITH FIBER 237 ML LIQUID (CHOCOLATE) PO SCH ×2 (08:21→17:24)
--- NOTE | 2021-03-26 13:00 | NUR ---
SLEPT ON AND OFF DENIES PAIN OR DISCOMFORTS AABLE TO AMBULATE TO AND FROM THE BATHROOM WITH THE FRONT WHEEL WALKER WITH SLOW STEADY GAIT ENDURANCE IS GOOD.
[2021-03-26 16:00] VITALS: BP 101/59
[2021-03-26] MEDS: SIMVASTATIN 10 MG TABLET PO SCH (17:23)
--- NOTE | 2021-03-26 18:14 | NUR ---
RESTING TALKED TO NHER SON AT LENGTH TOLERATED INNER DENIES DISCOMFORTS NOT IN DISTRESS WILL OBSERVE.
[2021-03-26 20:15] VITALS: BP 132/69
--- NOTE | 2021-03-26 20:47 | NUR ---
received sitting on the edge of the bed, with call light within reach
[2021-03-26] MEDS: PREGABALIN 25 MG CAPSULE PO SCH (20:57)
--- NOTE | 2021-03-26 22:00 | NUR ---
medications due given ,
[2021-03-27] MEDS: ASPIRIN/ACETAMINOPHEN/CAFFEINE TABLET PO PRN (01:16)
--- NOTE | 2021-03-27 01:22 | NUR ---
asleep .wake up and assisted to the bathroom via walker and voided freely. assisted back to bed. cleaned and kept dry. with complaints of pain to the hip and heels 02/18. medication given for pain and documented
[2021-03-27 04:10] VITALS: BP 107/60
[2021-03-27] MEDS: PANTOPRAZOLE SODIUM 40 MG TABLET.DR PO SCH (06:30)
--- NOTE | 2021-03-27 06:34 | NUR ---
patient claims that she wants to talk to the doctor to stop the lyrica as it makes her dizzy. will inform physician about it. latest he 98/min.
--- NOTE | 2021-03-27 06:45 | NUR ---
ambulated to the bathroom with minimal assist ,voided freely. assisted back to bed and tolerated the process. with no dizziness complaints,
--- NOTE | 2021-03-27 07:30 | NUR ---
received change of shift report, pt resting in bed, a/ox4. pt on room air, no signs of distress noted, call light within reach. pt amb to restroom with min assist, BRP. call light within reach, will continue with plan of care.
[2021-03-27 07:32] VITALS: BP 119/67
[2021-03-27] MEDS: HYDROCHLOROTHIAZIDE 25 MG TABLET PO SCH (09:00)
--- NOTE | 2021-03-27 09:00 | NUR ---
pt refused BP medication as she stated her BP was good (119/67) and does not want the medication to drop it too low into the 100's, like it usually does because she gets very tired. educated pt on medication, pt verbalized understanding.
[2021-03-27] MEDS: OXYCODONE HCL 10 MG TAB.SR.12H PO SCH ×2 (09:06→20:24)
[2021-03-27] MEDS: OXYBUTYNIN XL 5 MG TABSR PO SCH (09:06)
[2021-03-27] MEDS: ENSURE WITH FIBER 237 ML LIQUID (CHOCOLATE) PO SCH ×2 (09:09→17:19)
[2021-03-27 16:00] VITALS: BP 128/76
[2021-03-27] MEDS: SIMVASTATIN 10 MG TABLET PO SCH (17:26)
[2021-03-27 20:15] VITALS: BP 112/66
[2021-03-27] MEDS: PREGABALIN 25 MG CAPSULE PO SCH (20:23)
[2021-03-28 04:15] VITALS: BP 112/68
--- NOTE | 2021-03-28 05:32 | NUR ---
Shift end Report: Vs stable. Medicated once for pain with relief. No further complaint presented. Slept good. All needs attended and met. No significant event reported all night. Continue current rehab plan of care.
[2021-03-28] MEDS: PANTOPRAZOLE SODIUM 40 MG TABLET.DR PO SCH (06:07)
--- NOTE | 2021-03-28 07:30 | NUR ---
received change of shift report. pt a/ox4, on room air, saturating at 95%, mild pain reported on the pelvic area, medication will be given as ordered. pt ambulatory, walker at bedside. safety precautions in place, will continue with plan of care .
[2021-03-28 08:00] VITALS: BP 124/72
[2021-03-28] MEDS: OXYCODONE HCL 10 MG TAB.SR.12H PO SCH ×2 (08:27→20:46)
[2021-03-28] MEDS: OXYBUTYNIN XL 5 MG TABSR PO SCH (08:27)
[2021-03-28] MEDS: ENSURE WITH FIBER 237 ML LIQUID (CHOCOLATE) PO SCH ×2 (08:30→18:27)
[2021-03-28] MEDS: HYDROCHLOROTHIAZIDE 25 MG TABLET PO SCH (08:34)
[2021-03-28 16:20] VITALS: BP 114/59
[2021-03-28] MEDS: SIMVASTATIN 10 MG TABLET PO SCH (18:27)
--- NOTE | 2021-03-28 19:20 | NUR ---
PT RESTING IN BED, VISITED BY MD, CHANGED BP MEDICATIONS GIVEN BY MD. NO REPORTS OF PAIN AT THIS TIME, ON ROOM AIR, NO SIGNS OF DISTRESS, ALL MEDICATIONS GIVEN ORDERED, WILL ENDORSE TO ONCOMING NURSE.
[2021-03-28 20:05] VITALS: BP 116/71
[2021-03-28] MEDS: PREGABALIN 25 MG CAPSULE PO SCH (20:46)
[2021-03-29 04:05] VITALS: BP 121/76
--- NOTE | 2021-03-29 05:27 | NUR ---
Shift End Report: Vs stable. Slept well. Uneventful night. Continue current rehab plan of care.
[2021-03-29] MEDS: PANTOPRAZOLE SODIUM 40 MG TABLET.DR PO SCH (06:15)
[2021-03-29 07:53] VITALS: BP 139/81
--- NOTE | 2021-03-29 08:00 | NUR ---
pt in bed resting, pt cooperative, happy to be going home today. pt on room air, no signs of distress, a/ox4, call light within reach, will continue to monitor.
[2021-03-29] MEDS ORDERED: HYDROCHLOROTHIAZIDE 25 MG TABLET PO SCH (09:00)
[2021-03-29] MEDS: OXYBUTYNIN XL 5 MG TABSR PO SCH (10:19)
[2021-03-29 10:20] VITALS: BP 139/81
[2021-03-29] MEDS: OXYCODONE HCL 10 MG TAB.SR.12H PO SCH (10:20)
[2021-03-29] MEDS: ENSURE WITH FIBER 237 ML LIQUID (CHOCOLATE) PO SCH (10:21)
--- NOTE | 2021-03-29 16:10 | NUR ---
pt discharged home with all belongings, and medications, and DME. pt vitals WNL, accompanied to car by BOTTOM STOP ATTACHER and pt son. pt on room air, ambulatory, all medications given as ordered. pt given exit care instructions, pt going to [facility] with home health. all paperwork and imaging CD given to pt.
== END 2021-03-29 16:10 | disposition home health service (06) | DRG 560 ==
PROVIDERS: ADMIT Physical Medicine & Rehabilitation Pain Medicine; ATTEND Physical Medicine & Rehabilitation Pain Medicine
DX: S32.82XD Multiple fractures of pelvis without disruption of pelvic ring, subsequent encounter for fracture with routine healing (principal); N39.0 Urinary tract infection, site not specified; R64 Cachexia; D68.59 Other primary thrombophilia; Z68.1 Body mass index [BMI] 19.9 or less, adult; S32.129D Unspecified Zone II fracture of sacrum, subsequent encounter for fracture with routine healing; W01.0XXD Fall on same level from slipping, tripping and stumbling without subsequent striking against object, subsequent encounter; M47.816 Spondylosis without myelopathy or radiculopathy, lumbar region; M19.90 Unspecified osteoarthritis, unspecified site; M85.80 Other specified disorders of bone density and structure, unspecified site; E78.5 Hyperlipidemia, unspecified; D69.6 Thrombocytopenia, unspecified; D63.8 Anemia in other chronic diseases classified elsewhere; I10 Essential (primary) hypertension; B96.89 Other specified bacterial agents as the cause of diseases classified elsewhere; K21.9 Gastro-esophageal reflux disease without esophagitis; M16.0 Bilateral primary osteoarthritis of hip; R42 Dizziness and giddiness; R53.1 Weakness
CPT/HCPCS: 36415; 85025; A4663; A9150; J1650